=== PATIENT | female | born 1940 | race Caucasian/White ===

== ENCOUNTER → 2017-04-23 | Outpatient (CLI) | payer OTHER ==
[~2017-04-23] MED LIST: FOSAMAX70 MG PO; OMEPRAZOLE40 MG PO
--- NOTE | ~2017-04-23 | BD1 ---
[facility] A Service of [facility] RADIOLOGY TEXT RESULTS PATIENT: CODY CURTIS LOCATION: [facility] : 36 UNIT #: [id number] AGE: [address]: WES SARMIENTO MD SEX: F ORDER DR: [id number] [facility] [address] [place], [place] [address] [id number] O MR#: [id number] Acc #: [id number] NAME: CODY CURTIS : 1940 SEX: F STUDY DATE/TIME: 04/23/2017 UNIT: [facility] ROOM: STUDY DESCRIPTION: BD Dexa Bone Dens 1+ Site Attending Physician: Wes Sarmiento M.D. Referring Physician: Wes Sarmiento M.D. Ordering Physician: Physician Non-Staff Primary Care Physician: Wes Sarmiento M.D. MEDICAL IMAGING REPORT This report is preliminary unless electronic signature is present EXAM DXA scan, 04/23/2017. HISTORY Status post menopause with no hormone replacement therapy. Osteopenia. Hysterectomy at age 38 with removal of both ovaries. Arthritis. Smoking history for 40 years. FINDINGS Bone mineral density in the lumbar spine from L1-L4 is 0.772 g/cm2 which is 2.5 standard deviations below the mean when compared to the young adult reference population which is characteristic of osteoporosis. This is 0.1 standard deviations above the mean when compared to the age-matched population. Bone mineral density in the left femoral neck was 0.644 g/cm2 which is 1.8 standard deviations below the mean when compared to the young adult reference population which is characteristic of osteopenia. This is 0.4 standard deviations above the mean when compared to the age-matched population. IMPRESSION Bone mineral density in the lumbar spine characteristic of osteoporosis and within the left hip characteristic of osteopenia. Dictated by... Sha Jon M.D. THIS IS AN ELECTRONICALLY VERIFIED REPORT Sha Jon M.D. at 04/23/2017 1:44 PM KRT/tmw [facility] A Service of [facility] RADIOLOGY TEXT RESULTS PATIENT: CODY CURTIS LOCATION: [facility] : 36 UNIT #: [id number] AGE: [address]: WES SARMIENTO MD SEX: F ORDER DR: TD: 04/23/2017 10:09 JOB #: [id number] MEDICAL IMAGING REPORT Page 1 of 1 COPY
== END | disposition home or self-care (01) ==
LOC: CWCC 08:52
DX: Z13.820 Encounter for screening for osteoporosis (principal); M81.0 Age-related osteoporosis without current pathological fracture; M85.88 Other specified disorders of bone density and structure, other site; N95.9 Unspecified menopausal and perimenopausal disorder; Z88.6 Allergy status to analgesic agent
CPT/HCPCS: 77080